=== PATIENT | female | born 2000 | race Caucasian/White ===

== ENCOUNTER 2025-04-07 12:22 | Emergency (ER) | payer OTHER ==
[~2025-04-07] VITALS: Ht 172.7 cm; Wt 124.5 kg
[2025-04-07] MEDS ORDERED: BENZONATATE200 MG PO (14:53)
[2025-04-07] MEDS ORDERED: VENTOLIN HFA18 GM INH (14:53)
[2025-04-07 15:16] VITALS: BP 152/101
== END 2025-04-07 15:06 | disposition home or self-care (01) ==
LOC: ED 12:22
DX: J06.9 Acute upper respiratory infection, unspecified (principal)
CPT/HCPCS: 71046; 99283-25